=== PATIENT | male | born 1955 | race Caucasian/White ===

== ENCOUNTER → 2019-06-27 | Outpatient (CLI) | payer BC, OTHER ==
[~2019-06-27] MED LIST: HCT25T; LEVO200T30; LSNP20T; PGLT30T; SAXA1TBM PO; VYTORIN
--- NOTE | 2019-06-27 09:21 | Diagnostic Imaging Report ---
CT CHEST SCREENING WO TECHNIQUE: Low-dose unenhanced CT of the chest was performed according to the screening protocol. Coronal MIP and sagittal MPR reformats are created. Automatic exposure controls were utilized to keep dose as low as reasonably achievable. INDICATION: 63-year-old current smoker with [id number] history of smoking. COMPARISON: None available. FINDINGS: Pulmonary findings: No endoluminal nodule within the trachea. Moderate paraseptal and centrilobular emphysema is present. No pulmonary mass or consolidation. There are calcified nodules within both upper lung zones compatible with old granulomatous infection. No indeterminate pulmonary nodule that would be suspicious for clinically active lung cancer. Extrapulmonary findings: No pleural effusion. No axillary lymphadenopathy. No mediastinal, hilar or juxtaphrenic lymphadenopathy. Heart is normal in size without pericardial effusion. Coronary artery calcifications are present. No worrisome focal osseous lesions. IMPRESSION: 1. Screening examination is negative for features of clinically active lung cancer. 2. Moderate emphysema. 3. Coronary artery disease. Lung-RADS category: 1 - Negative. RECOMMENDATIONS: Continued annual screening with low-dose CT in 12 months. Dictated by: Dictated on workstation # [id number]
== END ==
LOC: RAD 07:54
PROVIDERS: ATTEND Family Medicine
DX: Z12.2 Encounter for screening for malignant neoplasm of respiratory organs (principal); J43.9 Emphysema, unspecified; I25.10 Atherosclerotic heart disease of native coronary artery without angina pectoris

== ENCOUNTER → 2020-02-20 | Outpatient (CLI) | payer OTHER ==
[~2020-02-20] VITALS: Ht 180 cm; Wt 91.0 kg
[~2020-02-20] MED LIST changes: +REGADENOSON 0.4 MG/5 ML SYR (LEXISCAN) IV ONE
[2020-02-20] MEDS: CATHETER FLUSH 10 ML SYR IV PRN ×2 (07:24→08:59)
[2020-02-20 08:58] VITALS: BP 165/82
--- NOTE | 2020-02-21 08:21 | Cardiology Stress Test Report ---
Stress Test Report Date of Procedure/Referring: Date of Procedure: Feb 20, 2020 PCP Minnie Nathan Admitting Physician Shea Riggins MD Indications: Hypertension, hyperlipidemia Baseline Heart Rate: 58 Baseline Blood Pressure: Blood Pressure Systolic: 165 Blood Pressure Diastolic: 82 Baseline Vitals Vital Signs Date Time Temp Pulse Resp B/P (MAP) Pulse Ox O2 Delivery O2 Flow Rate FiO2 02/20/20 08:58 58 14 165/82 (109) 98 Room Air Baseline EKG: Baseline EKG: normal sinus rhythm Summary After explaining the procedure to the patient, he signed a consent and then brought to the stress nuclear laboratory. Patient received 0.4 mg Lexiscan for stress test, ECG, heart rate and blood pressure were monitored continuously. Resting and stress dose of radio tracer were injected, imaging was acquired and reviewed in short axis, horizontal long axis and vertical long axis views. TID: 1.17 SSS: 17 SDS: 5 EF: 51 1. Patient tolerated Lexiscan well 2. Decrease uptake involving the whole inferior wall and inferolateral wall with mild reversibility 3. Normal left ventricular size, EF 51 percent SWATI SIMON MD Feb 21, 2020 08:20
== END ==
LOC: CARD 07:45
PROVIDERS: ATTEND Physician Assistant
DX: I10 Essential (primary) hypertension (principal); E11.9 Type 2 diabetes mellitus without complications; E03.9 Hypothyroidism, unspecified; E78.2 Mixed hyperlipidemia
CPT/HCPCS: 78452; 93017; A9502

== ENCOUNTER → 2020-02-27 | Outpatient (CLI) | payer OTHER ==
[~2020-02-27] MED LIST changes: +ASPI-1238 PO; +ATOR40TA70 PO; +COLE625T9 PO; +DIPH25CA79 PO; +FENO145T26 PO; +INSU100I10 SQ; +INSU100I23 SQ; +LEVO150T6 PO; +LISI-552 PO; +MAGN250T13 PO; +MULT-1136 PO; +PNT400TCR PO; -REGADENOSON 0.4 MG/5 ML SYR (LEXISCAN) IV ONE; +SILD20TA PO
== END ==
LOC: CARD 09:00
PROVIDERS: ATTEND Physician Assistant
DX: I10 Essential (primary) hypertension (principal); E11.9 Type 2 diabetes mellitus without complications; E03.9 Hypothyroidism, unspecified; E78.2 Mixed hyperlipidemia
CPT/HCPCS: 93306

== ENCOUNTER 2020-02-29 09:00 | Day surgery (SDC) | payer OTHER ==
[~2020-02-29] VITALS: Ht 180 cm; Wt 93.0 kg
[2020-02-29] VITALS (10 sets, daily range): BP systolic 133–169; BP diastolic 77–92
[2020-02-29 07:19] LABS: HEMOGLOBIN 15.2 g/dL (13.3-17.7); MEAN PLATELET VOLUME 10.5 fL (9.0-12.2); WHITE BLOOD COUNT 8.5 10^3/uL (4.3-11.0)
[2020-02-29 07:20] LABS: BILIRUBIN,URINE NEGATIVE (NEGATIVE); CLARITY,URINE CLEAR; COLOR,URINE YELLOW; GLUCOSE, URINE (UA) NEGATIVE (NEGATIVE); KETONES,URINE NEGATIVE (NEGATIVE); LEUKOCYTE ESTERASE ,URINE NEGATIVE (NEGATIVE); NITRITE,URINE NEGATIVE (NEGATIVE); PROTEIN,URINE 1+ (NEGATIVE)
[2020-02-29 07:29] LABS: CHLORIDE 105 MMOL/L (98-107); POTASSIUM 4.2 MMOL/L (3.6-5.0); SODIUM 138 MMOL/L (135-145)
[2020-02-29 07:30] LABS: ALBUMIN 4.3 GM/DL (3.2-4.5)
[2020-02-29 07:31] LABS: CALCIUM 8.9 MG/DL (8.5-10.1); TRIGLYCERIDES 520 MG/DL (<150)
[2020-02-29 07:32] LABS: GLUCOSE 236 MG/DL (70-105); INR 0.9 (0.8-1.4); TOTAL PROTEIN 7.6 GM/DL (6.4-8.2)
[2020-02-29 07:33] LABS: CARBON DIOXIDE 21 MMOL/L (21-32)
[2020-02-29 07:34] LABS: BILIRUBIN,TOTAL 0.4 MG/DL (0.1-1.0)
[2020-02-29 07:36] LABS: ALKALINE PHOSPHATASE 49 U/L (40-136); CREATININE SERUM 1.31 MG/DL (0.60-1.30); GFR ESTIMATED 55
[2020-02-29 07:37] LABS: BUN/CREATININE RATIO 14; CHOLESTEROL 144 MG/DL (< 200)
[2020-02-29 07:38] LABS: HDL CHOLESTEROL 33 MG/DL (40-60)
[2020-02-29 07:39] LABS: ALANINE AMINOTRANSFERASE 28 U/L (0-55)
[2020-02-29 07:42] LABS: BACTERIA,URINE NEGATIVE /HPF; RBC,URINE RARE /HPF; SQUAMOUS EPITHELIAL CELL,UR RARE /HPF; WBC,URINE RARE /HPF
--- NOTE | 2020-02-29 08:09 | NUR ---
SPOKE WITH THE PT (HE HAD HIS HOME MEDS WITH HIM) AND CALLED [facility] AND [facility] TO COMPLETE THE MED REC 10-15-2019 SILDENAFIL 20MG #90/PRN 01-01-2020 LISINOPRIL 20MG #90/90DS 01-23-2020 LANTUS SOLOSTAR #5/60DS 02-03-2020 ATORVASTATIN 40MG #90/90DS 02-09-2020 WELCHOL 625MG #180/30DS 02-13-2020 LEVOTHYROXINE 150MCG #90/9DS 02-13-2020 PENTOXIFYLLINE 400MG #90/30DS 02-14-2020 HUMALOG KWIK PEN U-100 #5/100DS OTC MEDS: MAGNESIUM 250MG BENADRYL MTV ASPIRIN 81MG
--- NOTE | 2020-02-29 08:17 | Diagnostic Imaging Report ---
EXAMINATION: Chest 1 view HISTORY: Abnormal stress test. Coronary artery disease. COMPARISON: 07/08/2006. FINDINGS: No focal consolidation is seen. No large pleural effusion or pneumothorax is seen. The cardiomediastinal silhouette is normal in size and contour. No acute osseous abnormality is seen. IMPRESSION: 1. No acute pleuroparenchymal process. Dictated by: Dictated on workstation # [id number]
[~2020-02-29 09:00] MED LIST changes: -FENO145T26 PO; +HEParin (CATH LAB) 2,000 ML IV ONE; +LIDOCAINE 1% INJ 20 ML 20 ML VIAL ONE; +NS IV 1000 ML 1,000 ML IV SCH; +NS IV 1000 ML 1,000 ML ONE
[2020-02-29] MEDS ORDERED: MIDAZOLAM 5 MG/5 ML (VERSED) VIAL ONE (09:22)
[2020-02-29] MEDS ORDERED: fentaNYL INJECTION 100 MCG/2 ML AMP ONE (09:23)
[2020-02-29] MEDS ORDERED: VERAPAMIL 5 MG/2 ML (CALAN) VIAL IV ONE (09:23)
[2020-02-29] MEDS ORDERED: NITRO DRIP 25000 MCG/D5W 250 ML IV ONE (09:23)
[2020-02-29] MEDS ORDERED: HEParin 1000 UNIT/ML (10ML VIAL) FOR BOLUS ONE (09:23)
--- NOTE | 2020-02-29 09:34 | Cardiac Procedure Note-CS/ASA ---
Pre-Procedure Note Pre-Op Procedure Note H&P Reviewed The H&P was reviewed, patient examined and no changes noted. Date H&P Reviewed: Feb 29, 2020 Time H&P Reviewed: 09:34 Conscious Sedation Pre-Proced Time 09:34 ASA Score 3 For ASA 3 and 4: Consider anesthesia and medical clearance. Also, for patients with a history of failed moderate sedation consider anesthesia. Airway Lungs Heart ASA score ASA 1: a normal healthy patient ASA 2: a patient with a mild systemic disease (mid diabetes, controlled hypertension, obesity x ASA 3: a patient with a severe systemic disease that limits activity (angina, COPD, prior Myocardial infarction) ASA 4: a patient with an incapacitating disease that is a constant threat to life (CHF, renal failure) ASA 5: a moribund patient not expected to survive 24 hrs. (ruptured aneurysm) ASA 6: a declared brain- patient whose organs are being harvested. For emergent operations, add the letter E after the classification Mallampati Classification Grade 3 Sedation Plan Analgesia, Amnesia, Plan communicated to team members, Discussed options with patient/fam, Discussed risks with patient/fam The patient is an appropriate candidate to undergo the planned procedure, sedation, and anesthesia. The patient immediately re-assessed prior to indication. SWATI SIMON MD Feb 29, 2020 09:34
[2020-02-29] MEDS ORDERED: NS IV 1000 ML 1,000 ML IV SCH (09:35)
[2020-02-29] MEDS ORDERED: FENO145T26 PO (09:36)
--- NOTE | 2020-02-29 09:37 | Discharge Inst-Post CATH ---
Discharge Inst-CATH/EP Problems Reviewed?: Yes Post Cardiac Cath/EP D/C Inst Follow Up/Plan Appointment with Dr. SIMON's office in 2-4 weeks <b>CARDIAC CATH/EP PROCEDURE DISCHARGE INSTRUCTIONS</b> ACTIVITY * Go Home directly and rest. * Limit activity of the leg (or wrist if it was used) for 7 days including aerobics, swimming, jogging, bicycling, etc. * Restrict stair-climbing for 7 days if possible, if not, climb up with your non-cath leg, then bring together on the same step. * Avoid lifting, pushing, pulling or excessive movement of the affected extremity for 7 days. * Customary sexual activity may be resumed after 2 days-use caution not to use a position that strains or causes pain to the affected extremity. * No driving for 24 hours. * NO SMOKING. * Avoid straining for bowel movements for 7 days. * Gentle walking on level ground is allowed. * Returning to work will depend on the type of procedure and the results. Your doctor will discuss this with you. CALL YOUR DOCTOR FOR ANY OF THE FOLLOWING: *If bleeding from the puncture site occurs- Apply gentle pressure to site with clean cloth and call your doctor or EMS. * If a knot or lump forms under the skin, increases in size, or causes pain. * If bruising appears to be worsening or moving further down your leg instead of disappearing. * Temperature above 101 F. CARE OF YOUR GROIN INCISION; * Bruising or purple discoloration of the skin near the puncture site is common. * You may shower only, no bathtub bathing for 5 days. Be careful to avoid slipping as your leg may feel stiff. * If a closure device was used on your femoral artery, please see the attached guide regarding care of the device and your leg. * Leave dressing on FOR 24 hours. CARE OF YOUR WRIST INCISION; * Bruising or purple discoloration of the skin near the puncture site is common. * You may shower. * DO NOT submerge wrist. * Leave dressing on FOR 24 hours. SWATI SIMON MD Feb 29, 2020 09:36
--- NOTE | 2020-02-29 09:41 | Cardiac Cath Report ---
Cardiac Cath Report Physician (s)/Patient Account Analyst (s) Physician SWATI SIMON MD Pre-Procedure Diagnosis Pre-Procedure Diagnosis: coronary artery disease Post-Procedure Note Procedure Start Date: Feb 29, 2020 Name of Procedure: Left heart catheterization Aortic arch angiogram Findings/Procedure Note PROCEDURE NOTE: 64 years old gentleman with history of hypertension, hyperlipidemia, had abnormal stress test, scheduled for cardiac catheterization possible PTCA After explaining the procedure to the patient, all pros and cons were explained, all questions were answered. The patient signed the consent and then he was placed on the cardiac catheterization laboratory. Groin was prepped SL fashion local anesthesia was used. Sheath placed in the right radial artery, Ranson catheter was advanced to the left ventricular cavity, left ventriculogram was not done, pressure was measured, pulled back with pressure measurement then intubated the left main coronary system and angiogram was done turned to the right coronary system and angiogram was done then pulled up to the aortic arch and aortic arch angiogram was done. At the end of the procedure the sheath was removed. Vascular band was used FINDINGS: Hemodynamics LV 121/8, end-diastolic pressure of 8 Aorta 116/68 mean of 88 ANATOMY: Left Main is free of obstructive disease Left Anterior Descending has 50 percent stenosis at the midportion nonobstructive disease Left Circumflex is dominant artery, the left PDA is a very small artery with moderate diffuse disease Right Coronory Artery is nondominant artery with mild to moderate disease diffusely LV Gram was not done pressure was measured Aorta evaluation done with aortic arch angiogram showed normal aortic arch, no dissection or aneurysm, normal origin of the brachiocephalic artery, left carotid and left subclavian arteries CONCLUSION: 1. 50 percent stenosis in the mid LAD nonobstructive disease 2. Dominant circumflex artery that is tapered down into a very small posterior descending branch with mild to moderate diffuse disease nonobstructive disease 3. Nondominant right coronary artery with mild disease 4. Normal left ventricular end-diastolic pressure 5. Normal aortic arch and great vessels of the neck DISCUSSION AND RECOMMENDATION: Maximizing medical therapy, patient had triglyceride level of over 500. Has been maintained on Lipitor 40 mg, I will add fenofibrate to his current medication Anesthesia Type: Conscious Sedation Estimated blood loss (mL): 10 ml Contrast Amount: 25 ml Total Radiation Dose: 172 mGy Post-Procedure Diagnosis Post-operative diagnosis: Coronary artery disease Hypertension Hyperlipidemia Hypertriglyceridemia SWATI SIMON MD Feb 29, 2020 09:41
== END 2020-02-29 12:20 | disposition home or self-care (01) ==
LOC: CATH 09:00
PROVIDERS: ATTEND Internal Medicine Cardiovascular Disease
DX: I25.10 Atherosclerotic heart disease of native coronary artery without angina pectoris (principal); I10 Essential (primary) hypertension; R94.39 Abnormal result of other cardiovascular function study; E78.1 Pure hyperglyceridemia; E03.9 Hypothyroidism, unspecified; E78.2 Mixed hyperlipidemia; E11.9 Type 2 diabetes mellitus without complications; I65.23 Occlusion and stenosis of bilateral carotid arteries; Z79.82 Long term (current) use of aspirin; Z79.899 Other long term (current) drug therapy; Z79.4 Long term (current) use of insulin; Z87.891 Personal history of nicotine dependence
CPT/HCPCS: 36221; 71045; 80053; 80061; 81000; 85027; 85610; 85730; 87081; 93458; C1894; 36415

== ENCOUNTER → 2020-05-04 | Outpatient (CLI) | payer OTHER ==
[~2020-05-04] MED LIST changes: +FENO145T26 PO; -HEParin (CATH LAB) 2,000 ML IV ONE; -LIDOCAINE 1% INJ 20 ML 20 ML VIAL ONE; -NS IV 1000 ML 1,000 ML IV SCH; -NS IV 1000 ML 1,000 ML ONE
[2020-05-04 09:06] LABS: ALBUMIN 4.2 GM/DL (3.2-4.5); BILIRUBIN,TOTAL 0.3 MG/DL (0.1-1.0); CALCIUM 9.2 MG/DL (8.5-10.1); CREATININE SERUM 1.45 MG/DL (0.60-1.30); POTASSIUM 4.1 MMOL/L (3.6-5.0); TOTAL PROTEIN 7.2 GM/DL (6.4-8.2)
== END ==
LOC: LAB 08:25
PROVIDERS: ATTEND Physician Assistant
DX: E78.2 Mixed hyperlipidemia (principal)
CPT/HCPCS: 36415; 80053; 80061

== ENCOUNTER → 2020-09-24 | Outpatient (CLI) | payer OTHER ==
[~2020-09-24] MED LIST changes: -LISI-552 PO; +LISI20TA26 PO
--- NOTE | 2020-09-24 08:49 | Diagnostic Imaging Report ---
EXAMINATION: CT chest without contrast (lung screening). TECHNIQUE: Multiple contiguous axial images were obtained through the chest without the use of intravenous contrast according to lung cancer screening protocol. All CT scans use one or more of the following dose optimizing techniques: automated exposure control, MA and/or KvP adjustment based on patient size and exam type or iterative reconstruction. HISTORY: 40 pack year history of smoking. COMPARISON: CT chest 06/27/2019 FINDINGS: Thyroid: The thyroid is normal. Mediastinum: Heart size is normal without significant pericardial effusion. Calcifications of the aorta and coronary vessels. Thoracic aorta is normal in caliber. No suspicious lymphadenopathy. Lungs and airways: There are emphysematous changes of lungs without consolidation, pleural effusion, or pneumothorax. There is atelectasis within the lung bases. There are a few stable tiny subpleural nodules within the superior left lower lobe which are unchanged from the prior exam measuring up to 0.2 cm. No new suspicious pulmonary nodule. There is mild bronchial wall thickening. There is mucous plugging within the right lower lobe bronchus. Upper abdomen: There is diffuse hepatic steatosis. Musculoskeletal: Degenerative changes of the spine without suspicious osseous lesion or compression fracture. IMPRESSION: 1. No new suspicious pulmonary nodule. Recommend continued annual low-dose CT screening. LUNG-RADS CATEGORY: 2 MODIFIER: S Dictated by: Dictated on workstation # [id number]
== END ==
LOC: RAD 08:15
PROVIDERS: ATTEND Family Medicine
DX: Z12.2 Encounter for screening for malignant neoplasm of respiratory organs (principal); Z87.891 Personal history of nicotine dependence
CPT/HCPCS: 71271

== ENCOUNTER → 2020-11-09 | Outpatient (CLI) | payer MEDICARE, OTHER ==
[~2020-11-09] VITALS: Ht 72 cm; Wt 91.0 kg
[~2020-11-09] MED LIST changes: +CASIRIVIMAB/IMDEVIMAB 1,200 MG in NS (IVPB) 250 ML IV ONE; +EPINEPHrine INJECTION 1 MG/ML AMP IM PRN; +diphenhydrAMINE 50 MG/ML INJ (BENADRYL) IV PRN
[2020-11-09 11:08] VITALS: BP 152/73
[2020-11-09 12:44] VITALS: BP 131/65
== END ==
LOC: INFUSION 11:07
PROVIDERS: ATTEND Nurse Practitioner Family
DX: Z23 Encounter for immunization (principal); U07.1 COVID-19